=== PATIENT | female | born 1960 | race Caucasian/White ===

== ENCOUNTER 2017-03-04 08:05 | Day surgery (SDC) | payer OTHER ==
[~2017-03-04] VITALS: Ht 167.6 cm; Wt 77.1 kg
[~2017-03-04 08:05] MED LIST: 0.9% Sodium Chloride 1,000 ML IV PRN; CHOL200025 PO; LISI-567 PO; Sodium Chloride LOK Flush 10 mL Syringe IV PRN; fentaNYL-PF 50 mCg/mL 2 mL Inj IVPUSH PRN
[2017-03-04 08:19] VITALS: BP 153/98; PULSE 60; RESP 14; O2SAT 97
[2017-03-04 09:28] VITALS: BP 157/88; PULSE 58; RESP 16; O2SAT 100
[2017-03-04 09:38] VITALS: BP 147/82; PULSE 53; RESP 16; O2SAT 99
[2017-03-04 09:48] VITALS: BP 140/84; PULSE 55; RESP 15; O2SAT 98
--- NOTE | 2017-03-04 09:58 | ENDO ---
[address] [address] ENDOSCOPY PROCEDURE PATIENT: CHEMA CM : 1960 MR#: [id number] ADMIT: 03/04/2017 JOB ID: [id number] DATE: 03/04/2017 PRIMARY PROVIDER: Joceline Jensen M.D. PROCEDURE: Colonoscopy with hot snare polypectomy and Yani ink tattoo placement. INDICATIONS: A 56-year-old female who reports for colon cancer screening. EQUIPMENT: PCF H 180 AL. SEDATION: 1. 5 mg Versed. 2. 100 mcg fentanyl. COMPLICATIONS: None identified. BOWEL PREPARATION: Fair, adequate examination. PROCEDURAL INFORMATION: After the risks and benefits were explained, written and verbal informed consent was obtained. The patient was brought into the endoscopy suite and placed into the left lateral decubitus position. Sedation was achieved using the above-stated medications with the addition of oxygen via nasal cannula. A digital rectal examination was accomplished. No significant pathology was appreciated. The scope was introduced into the rectum and advanced under direct visualization to the level of the cecum, as identified by the appendiceal orifice and ileocecal valve. The scope was slowly withdrawn to carefully examine the mucosa for any defects or lesions. Retroflexed views were avoided in the rectum. Multiple direct views were made through the dentate line for exclusion of pathology. The colon was decompressed. The scope removed the patient who tolerated the procedure well. FINDINGS: In the cecum there was a hyperplastic appearing polyp that could possibly represent a serrated adenoma. This was removed with hot snare and measured to be perhaps somewhere in the 8-10 mm lashawn. In the descending colon around 55 cm, there was another hyperplastic appearing fold. This was addressed using a hot snare. I put a small Yani ink tattoo adjacent to the polypectomy site for ease of future identification. This was at about 55 cm from the anal verge. The abnormal mucosa measured probably somewhere in the 15-18 mm range in terms of maximum dimension. If this is adenomatous, it was difficult to say if all of the adenomatous mucosa has been removed. No other significant pathology was appreciated throughout. ENDOSCOPIC DIAGNOSES: Hyperplastic appearing polyps. RECOMMENDATIONS: 1. Await histopathology. 2. If the descending colon polyp is returned with any adenomatous features, then I would recommend an early repeat colonoscopy in about six months to ensure all of this has indeed been completely resected. Otherwise repeat colonoscopy will be contingent on the cecal polyp anatomy histology.
--- NOTE | 2017-03-05 10:48 | PATH ---
SURGICAL PATHOLOGY Attending Physician:Cachorro Daily CASE STATUS: Signed Out PATIENT NAME: CHEMA CM PID: [id number] : 1960 DATE COLLECTED:03/04/2017 16:20 SPECIMEN: 1: Colon, Polyp 2: Colon, Polyp CLINICAL HISTORY: 1. CECAL POLYP X1 2. DESCENDING POLYP X1 FINAL DIAGNOSIS: 1.CECAL POLYP: SESSILE SERRATED ADENOMA. 2.DESCENDING COLON POLYP: HYPERPLASTIC POLYP INVOLVING BOTH BIOPSY FRAGMENTS. ICD10 D12.0 GROSS DESCRIPTION: The specimen is received in two formalin filled containers labeled with the patient's name. 1). The specimen is sublabeled "cecal polyp" and consists of a 0.4 x 0.4 x 0.3 CM portion of tissue which is entirely submitted in cassette 1A. 2). The specimen is sublabeled "descending polyp" and consists of 2 portions of tissue which aggregate to 0.5 x 0.5 x 0.4 CM. The specimen is entirely submitted in cassette 2A. 03/04/2017 [facility] MICRO DESCRIPTION: See diagnosis. ICD-9 CODES: CPT CODES: 1: 82065 2: 73046 Electronically Signed Out Goyo Lester MD [facility] Pathology [facility] [address] [place] [address] Technical component performed at [facility], [facility] [address], [place], [address]
== END 2017-03-04 23:59 | disposition home or self-care (01) ==
LOC: END 08:05
PROVIDERS: ATTEND Internal Medicine Gastroenterology
DX: Z12.11 Encounter for screening for malignant neoplasm of colon (principal); D12.0 Benign neoplasm of cecum; K63.5 Polyp of colon; E55.9 Vitamin D deficiency, unspecified
CPT/HCPCS: 45381; 45385; 99153; G0500; J2250; J3010; J7030